=== PATIENT | male | born 1950 | race Caucasian/White ===

== ENCOUNTER → 2022-01-17 09:38 | Outpatient (BNVA) | payer MEDICARE, OTHER, SELFPAY | PROVIDERS: Visit Provider Urology | DX: N40.1 Benign prostatic hyperplasia with lower urinary tract symptoms (principal) | CPT/HCPCS: 80053; 84153; 85025 ==

== ENCOUNTER 2022-01-26 18:34 | Emergency (ER) | payer MEDICARE, OTHER, SELFPAY ==
[2022-01-26 18:46] VITALS: BP 142/85; PULSE 87; RESP 16; TEMP 37.2; O2SAT 95; BMI 26.8
--- NOTE | 2022-01-26 18:53 | W.ED.FEVER ---
HPI - Fever General: Chief Complaint: Fever Stated Complaint: High Fever Possible Cathater Time Seen by Provider: 01/26/22 18:53 History of Present Illness: 3Mr. Juan is a 69-year-old gentleman with history of enlarged prostate and recent Metcalf catheter placement secondary to urinary retention who presents today to the emergency department due to fever. Reports intermittent history in the past associated with urinary retention, he was seen at outside facility and initially at supplies for intermittent self cath at home however subsequently had bleeding and had a Metcalf catheter placed yesterday. He tolerated procedure well and denies complaints regarding abdominal symptoms with the catheter. He did have fever today. Family is unsure exactly how high it was as there was discrepancy between infrared and measured. Measure temperature with an older thermometer was in the 101 range though laser was as high as 104. He has had associated chills and generalized malaise however no other focal symptoms. Overall intensity symptoms is moderate. Course has persisted. No other specific changes in health, exacerbating, or alleviating factors identified. Onset (ago): hour(s) Context: recent procedure Exacerbating factors: nothing Relieving factors: nothing Review of Systems General: Reports: 10 or more systems reviewed and unremarkable except in HPI and below PFSH ED PFSH: Medical History Left inguinal hernia Surgical History H/O bilateral inguinal hernia repair Family History Grandfather Diabetes Grandmother Cancer PANCREATIC Social History Smoking and tobacco status: former smoker Quit status (tobacco): has quit using tobacco Year quit tobacco: 1994 Former quit date comment: 1 PPD FOR 28 YEARS Second hand smoke exposure: No Alcohol intake: current Alcohol intake frequency: 0-2 Drinks per Day Alcohol type: beer History of recent travel: No Special ricardo needs: No Physical Exam Const: COMMON NORMALS: alert GENERAL APPEARANCE: cooperative and well developed HENMT: COMMON NORMALS: normocephalic and atraumatic HEAD & SCALP: normocephalic and atraumatic Eye: COMMON NORMALS: conjunctivae normal CONJUNCTIVA: Yes conjunctivae normal SCLERA: sclerae normal Neck/C-Spine: COMMON NORMALS: supple GENERAL: Yes trachea midline Resp: COMMON NORMALS: clear to auscultation bilaterally EFFORT & INSPECTION: Yes able to speak in complete sentences AUSCULTATION: clear to auscultation bilaterally Cardio: COMMON NORMALS: regular rate and regular rhythm RATE: regular rate RHYTHM: regular rhythm GI: COMMON NORMALS: Soft to palpation PALPATION: Yes Soft to palpation and No Tenderness to palpation present (GI) PERCUSSION: normal to percussion Extremity: GENERAL: Yes normal exam except as noted and No edema Neuro: COMMON NORMALS: moves all extremities SENSORIUM/ORIENTATION: Yes alert and No Orientation impaired Psych: COMMON NORMALS: mental status grossly normal and Normal thought process present THOUGHT PROCESS: Normal thought process present Course ED course: - Patient was seen and evaluated by me at bedside - Patient placed on cardiac monitors, IV access obtained - Initial evaluation notable for exam as above. Nontoxic - Labs personally interpreted by me - Labs notable for no leukocytosis, normal hemoglobin. Thrombocytopenia discussed with patient mild hyponatremia of uncertain etiology, creatinine improved from recent prior. Urinalysis without evidence of urinary tract infection. - Based on exam and history no indication for imaging. - Upon serial reexamination after treatment the patient was similar - Based on patient history, evaluation, and testing as interpreted the most likely cause of the patient's condition is fever of uncertain etiology in the context of recent instrumentation with catheter placement - The results of ED evaluation were discussed with the patient including prescriptions and/or symptomatic cares (if applicable) including appropriate and responsible use, followup plan, and return precautions. The patient verbalized understanding and felt safe for discharge. - Patient discharged in satisfactory condition. Note: Click bubbles or prepopulated guzman in note writing are used for assistance with data collection and billing and are inherently more limited than narrative and other text portions of this note. Please use narrative for additional clinical history and defer to narrative/free test for any case of contradictory information. If information appears in only free text or click bubble it should be considered present or absent as reported. Please contact note copy writer for clarifications of clinical information or contradictory information. MDM is a brief summary, contradictory or erroneous seeming information should be clarified and full note should be reviewed. Vital Signs: Vital signs: Vital Signs Temperature 98.8 F 01/26/22 20:14 Pulse Rate 76 01/26/22 21:14 Respiratory Rate 16 04/07/22 19:45 Blood Pressure 111/75 01/26/22 21:14 Pulse Oximetry 95 01/26/22 21:14 MDM - Fever Medical Decision Making 71-year-old gentleman with recent catheter placement presenting due to fever. ED evaluation and clinical history without clear source of infection. Satisfactory for outpatient management and follow-up. Medical Records I reviewed the patient's medical records. Lab Data I reviewed the patient's lab results. : 01/26/22 19:01/26/22: Laboratory Results WBC 4.3 10^3/uL (4.0-10.0) 01/26/22: RBC 4.61 10^6/uL (4.1-5.3) 01/26/22: Hgb 14.8 g/dL (11.7-16.6) 01/26/22: Hct 42.9 % (42.0-52.0) 01/26/22: MCV 93.1 fl (80-94) 01/26/22: MCH 32.1 pg (28.0-34.0) 01/26/22: MCHC 34.5 g/dL (30.0-36.0) 01/26/22 RDW 12.6 % (12.1-15.1) 01/26/22: Plt Count 114 10^3/cmm (130-400) L 01/26/22 MPV 10.3 fL (7.4-10.4) 01/26/22: Neut % (Auto) 78.3 % 01/26/22: Lymph % (Auto) 8.4 % 01/26/22: [place] % (Auto) 11.0 % 01/26/22: Eos % (Auto) 0.9 % 01/26/22 Baso % (Auto) 1.2 % 01/26/22 Neut # (Auto) 3.34 10^3/uL (1.8-7.7) 01/26/22: Lymph # (Auto) 0.4 10^3/uL (0.8-4.8) L 04/07/22 19:27 Kingman # (Auto) 0.5 10^3/uL (0.2-0.9) 01/26/22 19:27 Eos # (Auto) 0.0 10^3/uL (0.0-0.8) 01/26/22 19:27 Baso # (Auto) 0.1 10^3/uL (0.0-0.1) 01/26/22 19: Nucleated RBC % (auto) 0 % 01/26/22 19: Nucleated RBCs # 0.0 /100WBC 01/26/22 19: Sodium 131 mmol/L (136-145) L 01/26/22 19: Potassium 3.7 mmol/L (3.5-5.1) 01/26/22: Chloride 98 mmol/L (98-107) 01/26/22 19: Carbon Dioxide 23 mmol/L (22-29) 01/26/22: Anion Gap 13.7 (5-19) 01/26/22 19: BUN 20 mg/dL (8-23) 01/26/22 19: Creatinine 1.2 mg/dL (0.7-1.2) 01/26/22 19: GFR Calculation 60.0 mL/min (90-130) L 01/26/22: Glucose 117 mg/dL (65-115) H 01/26/22: Calculated Osmolality 276 mOsm/kg (285-295) L 01/26/22: Calcium 9.2 mg/dL (8.5-10.5) 01/26/22: Total Bilirubin 0.6 mg/dL (0.15-1.2) 01/26/22 19: AST 15 U/L (0-40) 01/26/22 19: ALT 11 U/L (0-41) 01/26/22 19: Alkaline Phosphatase 83 IU/L (40-130) 01/26/22: Total Protein 6.3 g/dL (6.6-8.7) L 01/26/22: Albumin 3.9 g/dL (3.5-5.2) 01/26/22: Globulin 2.4 g/dL (1.3-4.6) 01/26/22 19:27 Urine Color Yellow (Yellow) 01/26/22 19:27 Urine Appearance Clear (CLEAR) 01/26/22 19:27 Urine pH 5 (5-7) 01/26/22 19:27 Ur Specific Welcome 1.010 (1.005-1.030) 01/26/22 19:27 Urine Protein Neg (Negative) 01/26/22 19:27 Urine Glucose (UA) Norm (Normal) 01/26/22 19:27 Urine Ketones Negative (Negative) 01/26/22 19:27 Urine Blood 2+ (Negative) H 01/26/22 19:27 Urine Nitrate Negative (Negative) 01/26/22 19: Urine Bilirubin Neg (Negative) 01/26/22 19: Urine Urobilinogen Norm mg/dL (Negative) 01/26/22 19:27 Ur Leukocyte Esterase Negative (Negative) 01/26/22 19:27 Urine RBC 0-4 /hpf (0-2) H 01/26/22 19:27 Urine WBC 0-4 /hpf (0-5) H 01/26/22 19:27 Ur Squamous Epith Cells 0-4 /hpf (0-5) H 01/26/22 19:27 Amorphous Sediment Not Reportable 01/26/22 19: Urine Bacteria Trace /hpf (NONE) 01/26/22 19:27 Discharge Plan Discharge Patient Disposition: Home Clinical Impression: Fever, Thrombocytopenia Condition: Stable Prescriptions: No Action Bactrim DS 800-160 mg Tablet 1 tab PO ONCE 0RF Rx Instructions: SINGLE DOSE tamsulosin 0.4 mg capsule 0.4 mg PO BEDTIME 0RF Discharge Orders: Discharge ED (Routine); Ordered 01/26/22 Ordered By: Kareem Aguayo Discharge Diet: Usual diet Discharge Activity: Resume usual activity Patient Instructions: Fever in Adults (ED), Metcalf Catheter Placement and Care (ED), Thrombocytopenia (ED) Activity Restrictions/Additional Instructions: Thank you for visiting the emergency department. You were seen and evaluated for fever. The exact cause of your fever is unclear however does not appear to need hospitalization at this time. You may use [id number] medications for your symptoms however as discussed please do not exceed the daily recommended dosage. Please follow-up with your primary care provider and urologist. Please return to the emergency department for worsening symptoms, symptoms fail to improve, decreased urine output, severe flank/back pain, or anything else that you are concerned about and feel needs emergency department evaluation. Coding Level of Care Code ED Residential [employer] Building Designer for Chg Fwd Exam Comprehensive
[2022-01-26 19:18] VITALS: BP 153/85; RESP 16; TEMP 37.3
[2022-01-26 19:38] LABS: Basophils # 0.1 10^3/uL (0.0-0.1); Basophils % 1.2 %; Eosinophils % 0.9 %; Hematocrit 42.9 % (42.0-52.0); Hemoglobin 14.8 g/dL (11.7-16.6); Lymphocytes # 0.4 10^3/uL (0.8-4.8); Lymphocytes % 8.4 %; Mean Corpuscular HGB Conc 34.5 g/dL (30.0-36.0); Mean Corpuscular Hemoglobin 32.1 pg (28.0-34.0); Mean Corpuscular Volume 93.1 fl (80-94); Mean Platelet Volume 10.3 fL (7.4-10.4); Monocytes # 0.5 10^3/uL (0.2-0.9); Neutrophils # 3.34 10^3/uL (1.8-7.7); Neutrophils % 78.3 %; Nucleated Red Blood Cells % 0 %; Platelet Count 114 10^3/cmm (130-400); Red Blood Count 4.61 10^6/uL (4.1-5.3); Red Cell Distribution Width 12.6 % (12.1-15.1); White Blood Count 4.3 10^3/uL (4.0-10.0)
[2022-01-26 19:45] VITALS: BP 125/77; PULSE 79; RESP 16; TEMP 37.1; O2SAT 95
[2022-01-26 19:57] LABS: Alanine Aminotransferase 11 U/L (0-41); Albumin Level 3.9 g/dL (3.5-5.2); Alkaline Phosphatase 83 IU/L (40-130); Anion Gap 13.7 (5-19); Aspartate Amino Transferase 15 U/L (0-40); Blood Urea Nitrogen 20 mg/dL (8-23); Calcium 9.2 mg/dL (8.5-10.5); Carbon Dioxide 23 mmol/L (22-29); Chloride 98 mmol/L (98-107); Globulin 2.4 g/dL (1.3-4.6); Glucose 117 mg/dL (65-115); Osmolality Calculated 276 mOsm/kg (285-295); Potassium 3.7 mmol/L (3.5-5.1); Sodium 131 mmol/L (136-145); Total Bilirubin 0.6 mg/dL (0.15-1.2); Total Protein 6.3 g/dL (6.6-8.7)
[2022-01-26 20:05] VITALS: BP 117/78; O2SAT 93
[2022-01-26 20:14] VITALS: TEMP 37.1
[2022-01-26 20:20] LABS: Add Urine Microscopic? YES; Bilirubin Urine Neg (Negative); Blood Urine 2+ (Negative); Glucose Urine UA Norm (Normal); Ketones Urine Negative (Negative); Leukocyte Esterase Urine Negative (Negative); Nitrate Urine Negative (Negative); Protein Urine Neg (Negative); Urine Appearance Clear (CLEAR); Urine Color Yellow (Yellow); Urobilinogen Urine Norm (Negative); pH Urine 5 (5-7)
[2022-01-26 20:21] LABS: Bacteria Urine TRACE /hpf; RBC Urine 0-4 /hpf (0-2); Squamous Epithelial Cell Urine 0-4 /hpf (0-5); WBC Urine 0-4 /hpf (0-5)
[2022-01-26 20:22] LABS: Add Urine Culture? No
[2022-01-26 21:14] VITALS: BP 111/75; PULSE 76; O2SAT 95
== END 2022-01-26 21:22 | disposition home or self-care (01) ==
PROVIDERS: Emergency Provider Emergency Medicine
DX: R50.9 Fever, unspecified (principal); D69.6 Thrombocytopenia, unspecified
CPT/HCPCS: 80053; 81001; 85025; 87040; 99283

== ENCOUNTER → 2022-06-20 13:16 | Outpatient (BNVA) | payer MEDICARE, OTHER, SELFPAY | PROVIDERS: Visit Provider Urology | DX: Z12.5 Encounter for screening for malignant neoplasm of prostate (principal) | CPT/HCPCS: G0103 ==

== ENCOUNTER 2022-06-26 10:45 | Emergency (ER) | payer MEDICARE, OTHER, SELFPAY ==
[2022-06-26 10:56] VITALS: BP 151/93; PULSE 75; RESP 18; TEMP 36.7; O2SAT 96; BMI 26.0
--- NOTE | 2022-06-26 11:12 | ED_ITS ---
HPI - General Adult General: Chief complaint: Wound/Laceration Stated complaint: right leg laceration Time Seen by Provider: 06/26/22 10:55 History of Present Illness: Patient is a 72-year-old male up-to-date with tetanus presenting to the emergency room after sustaining a laceration to the right leg. Patient was lifting up a heavy pot when it excellently scraped the lateral aspect of his right ankle. Patient noticed moderate amount of bleeding. Patient denies any contamination with dirt. Patient applied gauze over and was able to stop the bleeding. Patient not on any anticoagulation. Patient presented to the emergency room for further evaluation. On arrival, there is no significant bleeding. Patient denies any other injuries. Patient tells me that he has had 3 tetanus vaccine in his lifetime with the most recent one being within the last 5 years. Patient denies any other injuries. Denies nausea/vomiting, fever/chill, chest pain, shortness of breath, abdominal pain, dysuria/hematuria/polyuria, diarrhea/melena/hematochezia. Onset: 1 hr ago Duration:ongoing Location:home Severity:mild/moderate Associated symptoms: Deny chest pain, dyspnea, nausea, palpitations or vomiting Review of Systems Const: Denies: fever(s) or chills Eyes: Denies: change in vision ENMT: Denies: mouth pain Card: Denies: chest pain or palpitations Resp: Denies: dyspnea or non-productive cough GI: Denies: abdominal pain, nausea, vomiting or diarrhea : Denies: dysuria Musc: Denies: extremity pain Skin/Breast: Reports: new lesions (+ R lateral ankle laceration and transient bleeding) Neuro: Denies: weakness in extremities Psych: Reports: other (Normal mood) Miah/Lymph: Denies: easy bruising PFS ED PFSH: Medical History Left inguinal hernia Surgical History H/O bilateral inguinal hernia repair Family History Grandfather Diabetes Grandmother Cancer PANCREATIC Social History Smoking and tobacco status: former smoker Quit status (tobacco): has quit using tobacco Year quit tobacco: 1994 Former quit date comment: 1 PPD FOR 28 YEARS Second hand smoke exposure: No Alcohol intake: current Alcohol intake frequency: 0-2 Drinks per Day Alcohol type: beer History of recent travel: No Special ricardo needs: No Physical Exam Const: COMMON NORMALS: alert HENMT: COMMON NORMALS: atraumatic HEAD & SCALP: atraumatic MOUTH: moist mucous membranes not abnormal Eye: COMMON NORMALS: EOMs intact bilaterally and conjunctivae normal CONJUNCTIVA: Yes conjunctivae normal Neck/C-Spine: COMMON NORMALS: full ROM and supple Resp: COMMON NORMALS: normal respiratory effort and clear to auscultation bilaterally AUSCULTATION: clear to auscultation bilaterally Cardio: COMMON NORMALS: regular rate RATE: regular rate GI: COMMON NORMALS: Soft to palpation and non-tender PALPATION: Yes Soft to palpation Extremity: COMMON NORMALS: full ROM OTHER: + 2+ DP/PT pulses on the right lower extremity, sensation and strength intact in the right lower extremity, no signs of active extravasation or bleeding Neuro: SENSORIUM/ORIENTATION: Yes alert MOTOR EXAM: No Abnormal motor strength present and Other motor observations present (no focal motor deficits) Psych: COMMON NORMALS: speech normal SPEECH: Yes normal speech MOOD & AFFECT: Yes euthymic mood Skin: NARRATIVE SKIN EXAM: +4cm clean superficial laceration above the right lateral malleolus Procedures Laceration Laceration 1: Site: lower extremity (+R lateral leg) Side (If applicable): right Description: linear and clean Depth: simple, single layer Local Anesthetic: lidocaine 1% and with epi Amount of anesthesia used (mL): 4 Pre-repair: wound explored and irrigated extensively Skin layer closed with: vicryl Size (cm): 4-0 Number of sutures: 3 Technique: simple, interrupted Course Vital Signs: Vital signs: Vital Signs Temperature 98.1 F 06/26/22 10:56 Pulse Rate 86 06/26/22 11:27 Respiratory Rate 15 06/26/22 11:27 Blood Pressure 148/96 06/26/22 11:27 Pulse Oximetry 98 06/26/22 11:27 Oxygen Delivery Me thod 06/26/22 11:27 MDM - General Adult Medical Decision Making 72-year-old male presenting to the emergency after sustaining a laceration to the lateral right ankle. Patient has a 4 mm clean superficial linear laceration. Patient is up-to-date with his tetanus and will not require one today. There is no signs of active bleeding. The wound has been extensively cleaned and laceration has been closed. Please refer to the procedure note. Disposition: Discharge. Patient counseled regarding diagnostic impression, treatment plan. Patient given ED strict return precautions to return for continuation, worsening, or development of new symptoms. Instructed to f/u w/ PCP regarding symptoms today. Patient verbalized understanding. Discharge Plan Discharge Patient Disposition: Home Clinical Impression: Laceration Condition: Stable Prescriptions: No Action Ashwagandha Powder 1 tsp PO DAILY Rx Instructions: mixes with liquid and drinks daily ibuprofen 200 mg Tablet 400 mg PO Q6H PRN (Reason: Pain) Lions Russell Powder 0.5 tsp PO DAILY Rx Instructions: mixes with liquid and drinks daily Triphala Powder 0.5 tsp PO DAILY Rx Instructions: mixes with liquid and drinks daily Discharge Orders: Discharge ED (Routine); Ordered 06/26/22 Ordered By: Fer Mcmahon Patient Instructions: Laceration (ED), Opioid Safety Activity Restrictions/Additional Instructions: Sutures will dissolve in 3-4 weeks. If you want it out earlier, please have it taken out at urgent care, PCP office, or ER. Come back if there are any signs of infection Coding Level of Care Code ED [employer]orer H[employer] Skins for Nohemi Jose Exam Comprehensive
--- NOTE | 2022-06-26 11:12 | PC.NURSE ---
Patient here with c/o lac to right ankle, patient moving around a melodie barrel, bleeding has stopped, patient states tetanus is up to date. No other c/o at this time.
[2022-06-26 11:27] VITALS: BP 148/96; PULSE 86; RESP 15; O2SAT 98
[2022-06-26 12:06] VITALS: BP 138/88; PULSE 71; RESP 15; TEMP 36.5; O2SAT 97
[2022-06-26 12:07] VITALS: BP 138/88; PULSE 71; RESP 15; TEMP 36.5; O2SAT 97
== END 2022-06-26 12:09 | disposition home or self-care (01) ==
PROVIDERS: Emergency Provider Emergency Medicine
DX: S91.011A Laceration without foreign body, right ankle, initial encounter (principal); W26.8XXA Contact with other sharp object(s), not elsewhere classified, initial encounter; Z87.891 Personal history of nicotine dependence
CPT/HCPCS: 12002; 99283

== ENCOUNTER 2022-10-10 06:00 | Outpatient (RCR) | payer MEDICARE, OTHER, SELFPAY | END 2022-10-21 23:59 | disposition home or self-care (01) | LOC: SPT 06:00 | PROVIDERS: Visit Provider Nurse Practitioner Family | DX: M62.89 Other specified disorders of muscle (principal); N40.0 Benign prostatic hyperplasia without lower urinary tract symptoms | CPT/HCPCS: 97161; 97530 ==

== ENCOUNTER 2022-10-22 06:00 | Outpatient (RCR) | payer MEDICARE, OTHER, SELFPAY | END 2022-11-21 23:59 | disposition home or self-care (01) | LOC: SPT 06:00 | PROVIDERS: Visit Provider Nurse Practitioner Family | DX: M62.89 Other specified disorders of muscle (principal); N40.0 Benign prostatic hyperplasia without lower urinary tract symptoms | CPT/HCPCS: 97530 ==

== ENCOUNTER 2022-11-22 06:00 | Outpatient (RCR) | payer MEDICARE, OTHER, SELFPAY | END 2022-11-28 23:59 | disposition home or self-care (01) | LOC: SPT 06:00 | PROVIDERS: Visit Provider Nurse Practitioner Family | DX: M62.89 Other specified disorders of muscle (principal); N40.0 Benign prostatic hyperplasia without lower urinary tract symptoms | CPT/HCPCS: 97140; 97530 ==

== ENCOUNTER → 2022-12-12 14:24 | Outpatient (BNVA) | payer MEDICARE, OTHER, SELFPAY | PROVIDERS: Visit Provider Surgery | DX: Z12.11 Encounter for screening for malignant neoplasm of colon (principal) | CPT/HCPCS: 99203 ==

== ENCOUNTER → 2023-01-25 09:15 | Outpatient (BNVA) | payer MEDICARE, OTHER, SELFPAY | PROVIDERS: PCP Family Medicine; Visit Provider Family Medicine | DX: Z00.00 Encounter for general adult medical examination without abnormal findings (principal); Z13.220 Encounter for screening for lipoid disorders; Z13.6 Encounter for screening for cardiovascular disorders | CPT/HCPCS: 80053; 80061; 85025 ==

== ENCOUNTER 2023-02-19 06:00 | Outpatient (RCR) | payer MEDICARE, OTHER, SELFPAY | END 2023-03-02 23:59 | disposition home or self-care (01) | LOC: SPT 06:00 | PROVIDERS: Visit Provider Family Medicine | DX: M25.562 Pain in left knee (principal) | CPT/HCPCS: 97110; 97161 ==